=== PATIENT | female | born 1965 | race Caucasian/White ===

== ENCOUNTER 2018-04-27 14:45 | Emergency (ER) | payer OTHER ==
[2018-04-27] MEDS ORDERED: Methocarbamol TAB* 500 MG PO ONE (15:30)
[2018-04-27] MEDS ORDERED: Ketorolac INJ* 30 MG/ML 1 ML VIAL IM ONE (15:30)
--- NOTE | 2018-04-27 15:47 | ED ---
Back Pain - HPI Summary HPI Summary: 52-year-old female presents with back pain for the past 2 months. She denies any injury. States pain radiated down left leg. No weakness. Able to ambulate is normal. Has left side pain that increased last night. She did drive 4 hours today. States has had tried chiropractor and heat without relief. Also takes Tylenol ibuprofen. No saddle anesthesia or loss of bowel or bladder. No fevers. No urinary symptoms. No bowel pain. Did not have a previous history of back pain. Has not had any imaging of the back. - History of Current Complaint Chief Complaint: EDBackInjuryPain Stated Complaint: LT LEG/BACK PAIN Time Seen by Provider: 04/27/18 15:19 Pain Intensity: 10 - Allergies/Home Medications Allergies/Adverse Reactions: Allergies Allergy/AdvReac Type Severity Reaction Status Date / Time Sulfa (Sulfonamide Allergy Rash And Verified 04/27/18 15:04 Antibiotics) Itching PMH/Surg Hx/FS Hx/Imm Hx Endocrine/Hematology History: Denies: Hx Anticoagulant Therapy, Hx Diabetes Cardiovascular History: Denies: Hx Myocardial Infarction Infectious Disease History: No Infectious Disease History: Denies: Traveled Outside the [place] in Last 30 Days - Family History Known Family History: Positive: Diabetes - Social History Alcohol Use: Occasionally Substance Use Type: Reports: None Review of Systems Negative: Fever Negative: Chest Pain Negative: Shortness Of Breath Positive: Myalgia Positive: Paresthesia - left leg All Other Systems Reviewed And Are Negative: Yes Physical Exam Triage Information Reviewed: Yes Vital Signs On Initial Exam: Initial Vitals Temp Pulse Resp BP Pulse Ox 97.3 F 76 16 162/95 100 04/27/18 14:59 04/27/18 14:59 04/27/18 14:59 04/27/18 14:59 04/27/18 14:59 Vital Signs Reviewed: Yes Appearance: Positive: Well-Appearing Skin: Positive: Warm, Dry Head/Face: Positive: Normal Head/Face Inspection Eyes: Positive: Normal, Conjunctiva Clear ENT: Positive: Pharynx normal Respiratory/Lung Sounds: Positive: Clear to Auscultation, Breath Sounds Present Cardiovascular: Positive: Normal, RRR - n Abdomen Description: Positive: Nontender, Soft Bowel Sounds: Positive: Present Musculoskeletal: Positive: Strength/ROM Intact - back, Other - tenderness SI joint left, neg SLR, good pulses, good strength lower extermity. no midline tenderness back. senation grossly intact Neurological: Positive: Reflexes Intact - patella Psychiatric: Positive: Normal Diagnostics - Vital Signs Vital Signs Temp Pulse Resp BP Pulse Ox 04/27/18 14:59 97.3 F 76 16 162/95 100 - Laboratory Lab Statement: Any lab studies that have been ordered have been reviewed, and results considered in the medical decision making process. - Radiology lumbar Xray Interpretation: Positive (See Comments) - IMPRESSION: Grade 1 spondylolisthesis of L5 on S1. No fracture is noted. Radiology Interpretation Completed By: Radiologist Back Pain Course/Dx - Course Course Of Treatment: 52-year-old female presents with back pain for the past 2 months. She denies any injury. States pain radiated down left leg. No weakness. Able to ambulate is normal. Has left side pain that increased last night. She did drive 4 hours today. States has had tried chiropractor and heat without relief. Also takes Tylenol ibuprofen. No saddle anesthesia or loss of bowel or bladder. No fevers. No urinary symptoms. No bowel pain. Did not have a previous history of back pain. Has not had any imaging of the back. On exam tenderness left side of lower back. Tenderness SI joint. Negative straight leg raise. Neurovascularly intact. X-ray shows spondylithasis at L5. will treat with muscle relaxer. patient understand and agrees with plan. - Diagnoses Differential Diagnosis/HQI/PQRI: Positive: Herniated Disc, Strain, Sprain Provider Diagnoses: Back pain Discharge - Sign-Out/Discharge Documenting (check all that apply): Discharge/Admit/Transfer - Discharge Plan Condition: Good Disposition: HOME Prescriptions: Cyclobenzaprine TAB* [Flexeril 10 MG TAB*] 10 mg PO TID PRN #15 tab PRN Reason: Pain Patient Education Materials: Back Pain (ED) Referrals: Macho Fairbanks III [employer] [Primary Care Provider] - Additional Instructions: Take muscle relaxers three times a day, start with at night as can make drowsy Use ibuprofen or Tylenol for pain every 6 hours ice/heat area, move as much as possible Follow up with primary within 5 days Return to ED if develop any new or worsening symptoms - Billing Disposition and Condition Condition: GOOD Disposition: Home
--- NOTE | 2018-04-27 16:26 | RAD ---
Indication: Back pain. Left leg numbness. 5 views of lumbar spine demonstrates grade 1 spondylolisthesis of L5 on S1. Facet arthropathy is noted. Degenerative disc disease at L4-L5 and L5-S1. No fracture is noted. IMPRESSION: Grade 1 spondylolisthesis of L5 on S1. No fracture is noted.
[2018-04-27 17:02] VITALS: BP 151/102
== END 2018-04-27 17:01 | disposition home or self-care (01) ==
LOC: ED 14:45
DX: M54.9 Dorsalgia, unspecified (principal); M43.16 Spondylolisthesis, lumbar region
CPT/HCPCS: 72110; 96372; 99282; J1885

== ENCOUNTER 2018-05-01 12:41 | Observation (INO) | payer OTHER ==
[2018-05-01] MEDS ORDERED: LORazepam TAB(*) 1 MG PO ONE (13:14)
[2018-05-01] MEDS ORDERED: Ketorolac INJ* 60 MG/2 ML VIAL IM ONE (13:14)
[2018-05-01] MEDS ORDERED: predniSONE TAB* 20 MG PO ONE (13:14)
--- NOTE | 2018-05-01 13:21 | ED ---
Back Pain - HPI Summary HPI Summary: Patient is a 52-year-old female with worsening progression of low back pain over the past 2 months. She endorses pain to the left lower back radiating down into the leg. She was seen 2 days ago and x-ray was obtained, she was given muscle relaxers and states the back is progressively worsened since this time. She states she is unable to ambulate due to pain. She is tearful on arrival. She states she has been taking the muscle relaxer and ibuprofen without relief of symptoms. Endorses some numbness and tingling into the left lateral side of the leg without weakness. She had remained ambulatory until this afternoon. She states she has been continuing to work. Denies any previous back pain history. - History of Current Complaint Chief Complaint: EDBackInjuryPain Stated Complaint: SOB Time Seen by Provider: 05/01/18 12:59 Hx Obtained From: Patient Onset/Duration: Gradual Onset Onset/Duration: Started Hours Ago Timing: Constant Back Pain Location: Is Discrete @ - left lower back pain extending into the left leg Pain Intensity: 10 Pain Scale Used: 0-10 Numeric Character: Aching, Throbbing Aggravating Symptom(s): Movement, Lifting, Bending Alleviating Symptom(s): Rest, Position, Heat Associated Signs And Symptoms: Positive: Negative. Negative: Swelling, Redness , Bruising, Weakness, Numbness, Abdominal Pain, Bladder Incontinence, Bowel Incontinence, Weight Loss - Risk Factors AAA Risk Factors: Negative TAD Risk Factors: Negative Cauda Equina Risk Factors: Negative Epidural Abscess Risk Factors: Negative - Allergies/Home Medications Allergies/Adverse Reactions: Allergies Allergy/AdvReac Type Severity Reaction Status Date / Time Sulfa (Sulfonamide Allergy Rash And Verified 05/01/18 12:52 Antibiotics) Itching Home Medications: Home Medications Lisinopril 20 mg PO DAILY 05/01/18 [History Confirmed 05/01/18] Sertraline* [Zoloft*] 50 mg PO DAILY 05/01/18 [History Confirmed 05/01/18] Simvastatin (NF) [Zocor (NF)] 40 mg PO BEDTIME 05/01/18 [History Confirmed 05/01] PMH/Surg Hx/FS Hx/Imm Hx Previously Healthy: Yes Endocrine/Hematology History: Denies: Hx Anticoagulant Therapy, Hx Diabetes Cardiovascular History: Denies: Hx Myocardial Infarction - Immunization History Hx Pertussis Vaccination: No Immunizations Up to Date: Yes Infectious Disease History: No Infectious Disease History: Denies: Traveled Outside the [place] in Last 30 Days - Family History Known Family History: Positive: Diabetes - Social History Occupation: Employed Full-time Lives: With Family Alcohol Use: Occasionally Hx Substance Use: No Substance Use Type: Reports: None Hx Tobacco Use: Yes Smoking Status (MU): Heavy Every Day Tobacco Smoker Review of Systems Constitutional: Negative Negative: Fever, Chills, Fatigue Negative: Palpitations, Chest Pain Negative: Shortness Of Breath, Cough Negative: Abdominal Pain, Vomiting, Diarrhea, Nausea Genitourinary: Negative Positive: no symptoms reported, see HPI Positive: Arthralgia - left sided low back pain radiating to the left lower leg Skin: Negative Neurological: Negative All Other Systems Reviewed And Are Negative: Yes Physical Exam Triage Information Reviewed: Yes Vital Signs On Initial Exam: Initial Vitals Temp Pulse Resp BP Pulse Ox 98.6 F 78 20 179/112 100 05/01/18 12:48 05/01/18 12:48 05/01/18 12:48 05/01/18 12:48 05/01/18 12:48 Vital Signs Reviewed: Yes Appearance: Positive: Well-Appearing, Well-Nourished Skin: Positive: Warm, Skin Color Reflects Adequate Perfusion Neck: Positive: Supple, No Lymphadenopathy Respiratory/Lung Sounds: Positive: Clear to Auscultation, Breath Sounds Present Cardiovascular: Positive: RRR, Pulses are Symmetrical in both Upper and Lower Extremities Musculoskeletal: Positive: Pain @ - left lower leg radiated from left lower back , Other - flip test positive, raised leg test+. Negative: Jassi Sign Left, Jassi Sign Right Neurological: Positive: Sensory/Motor Intact, Alert, Oriented to Person Place, Time, Speech Normal Psychiatric: Positive: Normal, Affect/Mood Appropriate Diagnostics - Vital Signs Vital Signs Temp Pulse Resp BP Pulse Ox 05/01/18 12:48 98.6 F 78 20 179/112 100 - Laboratory Lab Statement: Any lab studies that have been ordered have been reviewed, and results considered in the medical decision making process. Back Pain Course/Dx - Course Course Of Treatment: During the course of treatment, the patient is evaluated for acute on chronic left-sided low back pain exacerbated with ambulation, alleviated only somewhat with lying flat. Pain is 10/10. Denies any weakness in the leg. Denies any bladder or bowel dysfunction. X-ray was obtained 2 days ago and negative, however she states the pain is worse compared to [address] lumbar spine obtained which shows broad based protrusion asymmetric towards the left and may impinge upon the left exiting nerve root. She is given 2 hydrocodone's, Ativan, Toradol, 60mg prednisone without relief. We have attempted to ambulate the patient twice and she continues to be unable to ambulate and still denotes 10/10 pain. I have offered admission as she remains unable to ambulate and has no care at home. She accepts admission. Discussed case with Dr. Luis at 5:10pm who agrees to admit patient. - Diagnoses Differential Diagnosis/HQI/PQRI: Positive: Herniated Disc, Strain, Sprain Provider Diagnoses: Lumbar nerve root impingement Discharge - Sign-Out/Discharge Documenting (check all that apply): Discharge/Admit/Transfer Signing out patient TO: Apollo Luis - admit to hospital - Discharge Plan Condition: Stable Disposition: ADMITTED TO [facility] Referrals: Macho Fairbanks III [employer] [Primary Care Provider] - - Billing Disposition and Condition Condition: STABLE Disposition: Admitted to [facility]
--- NOTE | 2018-05-01 14:25 | RAD ---
Indication: Low back pain. CT of the lumbar spine was obtained in the axial plane. Sagittal and coronal reconstructed images were obtained. The vertebral bodies appear normal in height. There is grade 1 spondylolisthesis of L5 on S1. There is broad-based protrusion with moderate degree of facet hypertrophy. There may be a moderate degree of spinal stenosis at this level. At L4-L5 broad-based protrusion flattens the thecal sac. There is a left posterior lateral component of disc protrusion which likely impinges upon the left exiting nerve root. Right foramen is grossly unremarkable. At L3-L4 broad-based protrusion flattens the thecal sac. No central foraminal stenosis is noted. At L2-L3 broad-based protrusion flattens the thecal sac. No central or foraminal stenosis is noted. At L1-L2 broad-based protrusion is noted. No focal protrusion is identified. IMPRESSION: Grade 1 spondylolisthesis of L5 on S1 with broad-based protrusion and moderate degree of spinal stenosis. At L4-L5 broad-based protrusion asymmetric towards the left and may impinge upon the left exiting nerve root.
[2018-05-01] MEDS ORDERED: HYDROcodone/ACETAMIN 5-325 MG* 1 TAB PO ONE (14:42)
[2018-05-01] MEDS ORDERED: Ondansetron INJ* 2 MG/ML VIAL IV PRN (17:41)
[2018-05-01] MEDS ORDERED: traMADol TAB* 50 MG PO PRN (17:44)
[2018-05-01] MEDS ORDERED: Cyclobenzaprine TAB* 10 MG PO PRN (17:46)
[2018-05-01 18:22] LABS: EGFR Non-African American 87.9 (>60)
[2018-05-01 18:29] LABS: ABS Basophils 0.1 10^3/ul (0-0.2); ABS Eosinophils 0 10^3/ul (0-0.6); ABS Lymphocytes 0.5 10^3/ul (1.0-4.8); ABS Monocytes 0.1 10^3/ul (0-0.8); ABS Neutrophils 5.6 10^3/ul (1.5-7.7); ABS Nucleated RBC 0 10^3/ul; Eosinophil % 0.1 % (0-6); Hematocrit 43 % (35-47); Hemoglobin 14.6 g/dl (12.0-16.0); Lymphocyte % 8.2 % (25-47); Mean Corpuscular HGB Conc 34 g/dl (31-36); Mean Corpuscular Hemoglobin 31 pg (27-31); Mean Corpuscular Volume 91 fL (80-97); Mean Platelet Volume 8.5 um3 (7.4-10.4); Nucleated Red Blood Cells % 0.1; Platelet Count 273 10^3/ul (150-450); Red Blood Count 4.68 10^6/ul (4.00-5.40); Red Cell Distribution Width 13 % (10.5-15); White Blood Count 6.3 10^3/ul (3.5-10.8)
[2018-05-01] MEDS: Atorvastatin* 20 MG TAB PO SCH ×2 (19:24→19:38)
[2018-05-01] MEDS: oxyCODONE/Acetamin 5/325 MG* TAB PO PRN (19:24)
--- NOTE | 2018-05-01 20:09 | HP ---
CC: Macho Fairbanks NP * HOSPITAL MEDICINE HISTORY AND PHYSICAL: DATE OF ADMISSION: 05/01/18 PRIMARY CARE PHYSICIAN: Macho Fairbanks NP ATTENDING PHYSICIAN: Ricky Luis MD * (dictation provided by Riya Campoverde NP) CHIEF COMPLAINT: Low back pain radiating to the left leg. HISTORY OF PRESENT ILLNESS: Ms. Alamo is a 52-year-old female with a past medical history of hypertension and hyperlipidemia who presents today to the hospital with severe pain in her low back radiating into her left leg. Ms. Alamo states that she began developing discomfort that radiated into her left leg in January. She denies any awareness of an inciting injury. Initially, she had numbness and tingling, but then progressed to pain over the next few weeks. She also began having pain in her low back. She went to see her primary care provider, CORINE Gutierrez, and, per her report, she was recommended to use heating pads and flexeril. She went on to see a chiropractor for several adjustments, but she stated this did not help her pain and in fact she continued to have worsening of her pain. Today she woke up about 9:30, she attempted to get out of bed, but she had severe pain in her left leg and was unable to stand. She also was unable to sit. The patient states this was new for her. She lay in the bed for a while and was able ultimately to make it down the stairs after stopping several times and then into the kitchen. She continued to have severe intermittent pain and ultimately drove herself to the emergency room at about 12:30. In the emergency room, Ms. Alamo had a CT of the lumbar spine, which showed grade 1 spondylolisthesis of L5-S1 with broad based protrusion and moderate degree of spinal stenosis at L4-L5, broad based protrusion asymmetric towards the left and may impinge upon the left exiting nerve root. The patient was given multiple doses of pain medication but despite this, she continued to have severe pain and inability to ambulate and therefore, Hospital Medicine was called regarding admission. PAST MEDICAL HISTORY: 1. Hypertension. 2. Hyperlipidemia. 3. Depression. MEDICATIONS: 1. Flexeril 10 mg p.o. t.i.d. p.r.n. 2. Lisinopril 20 mg p.o. daily. 3. Sertraline 50 mg p.o. daily. 4. Simvastatin 40 mg p.o. at bedtime. ALLERGIES: To SULFA. FAMILY HISTORY: The patient states her mother is alive and well. Her dad related to bladder cancer. SOCIAL HISTORY: The patient smokes a pack a day and has done so for some years. She reports only occasional alcohol use. She denies drug use. She works at [employer]. She states her mom would be her healthcare proxy. REVIEW OF SYSTEMS: A 14-point review of systems was completed with Ms. Alamo and all those not mentioned above were negative. PHYSICAL EXAMINATION GENERAL: Ms. Alamo is lying on her side in the bed. She is in no acute distress. VITAL SIGNS: Temperature 98.6, pulse rate 82, respiratory rate 20, O2 saturation 97% on room air, blood pressure 154/96. LUNGS: Clear to auscultation bilaterally with no accessory muscle use and good aeration. HEART: S1, S2. No murmur, rub, or gallop and regular. ABDOMEN: Soft, nontender with bowel sounds positive x4. BACK: The patient has no pain with palpation along the paraspinal muscles. She has a positive straight leg raise test with pain on the left. She has good sensation throughout. EXTREMITIES: No cyanosis. No edema. NEURO: She is alert. She is oriented x3. She moves all extremities equally. There is no facial asymmetry or focal weakness. Extraocular movements are intact. SKIN: Intact. LABORATORY DATA: Labs are pending. IMAGING: CT of back is as per above. ASSESSMENT AND PLAN: Ms. Alamo is a 52-year-old female with a past medical history of hypertension and hyperlipidemia who recently developed some numbness and tingling in her left leg as of January with a worsening and increasing pain, now in her low back and left leg with inability to ambulate despite pain medication in the ED. Our plans are for observation in the hospital for the followin. Low back pain with radiation to the left leg: The patient's CT shows no acute nerve impingement that is emergent in quality. She has no worrisome signs on physical examination. Our plans will be for pain medication overnight. She will go on for MRI tomorrow and if there are any significant findings there, we will consult with Neurosurgery. 2. Hypertension. Continue lisinopril. 3. Hyperlipidemia. Continue simvastatin. 4. Code status is full code. 5. Disposition to medical floor. TIME SPENT: Approximately 60 minutes were spent on the admission of this patient, more than half time spent with her at the bedside reviewing the events leading up to this hospitalization, performing the physical examination, and reviewing the plan of care. RIYA CAMPOVERDE NP [id number]/CPS #: [id number] SALIMA
[2018-05-01] MEDS: Heparin VIAL(*) 5000 UNITS/ML VIAL (FIVE THOUSAND) SUBCUT SCH (20:30)
[2018-05-02] MEDS: oxyCODONE/Acetamin 5/325 MG* TAB PO PRN ×6 (00:02→20:56)
[2018-05-02] MEDS: Heparin VIAL(*) 5000 UNITS/ML VIAL (FIVE THOUSAND) SUBCUT SCH ×3 (06:22→20:50)
[2018-05-02] MEDS: Sertraline* 50 MG TAB PO SCH (07:55)
[2018-05-02] MEDS: Atorvastatin* 20 MG TAB PO SCH (07:55)
[2018-05-02] MEDS: Lisinopril TAB* 10 MG PO SCH (07:55)
[2018-05-02] MEDS: HYDROmorphone INJ* 0.5 MG/0.5 ML SYRINGE IV SLOW PU PRN ×3 (08:04→20:57)
--- NOTE | 2018-05-02 08:26 | PN ---
Subjective Date of Service: 05/02/18 Interval History: Ms. Alamo is feeling somewhat better this morning. She has no pain at rest but had significant pain in her left leg when standing. She reports numbness and tingling in the left leg. She denies other complaint including chest pain, SOB , nausea, or abdominal pain. Objective Active Medications: Atorvastatin Calcium (Lipitor*) 20 mg PO BEDTIME TATIANNA Cyclobenzaprine HCl (Flexeril Tab*) 10 mg PO TID PRN Heparin Sodium (Porcine) (Heparin Vial(*)) 5,000 units SUBCUT Q8HR TATIANNA Hydromorphone HCl (Dilaudid Inj*) 0.5 mg IV SLOW PU Q4H PRN Lisinopril (Prinivil Tab*) 20 mg PO DAILY TATIANNA Ondansetron HCl (Zofran Inj*) 4 mg IV Q4H PRN Oxycodone/Acetaminophen (Percocet 5/325 Tab*) 2 tab PO Q4H PRN Sertraline HCl (Zoloft*) 50 mg PO DAILY TATIANNA Tramadol HCl (Ultram*) 100 mg PO Q6H PRN Vital Signs: Temp Pulse Resp BP Pulse Ox 98.4 F 74 20 137/83 99 05/02/18 07:32 05/02/18 07:32 05/02/18 08:04 05/02/18 07:32 05/02/18 07:32 Oxygen Devices in Use Now: None Appearance: Female lying in bed in NAD Eyes: No Scleral Icterus Ears/Nose/Mouth/Throat: Mucous Membranes Moist Neck: Trachea Midline Respiratory: Symmetrical Chest Expansion and Respiratory Effort, Clear to Auscultation Cardiovascular: NL Sounds; No Murmurs; No JVD, No Edema Abdominal: NL Sounds; No Tenderness; No Distention Lymphatic: No Cervical Adenopathy Extremities: No Edema Skin: No Rash or Ulcers Neurological: Alert and Oriented x 3, NL Muscle Strength and Tone, - - Brisk reflexes bilateral LEs. Lumbar pain with straight leg raise test on the left. Sensation intact. Nutrition: Taking PO's Result Diagrams: 05/01/18 18:00 05/01/18 18:00 Assess/Plan/Problems-Billing Assessment: Ms. Alamo is a 52 yo F with a PMH of HTN and HLD who was admitted on 05/01/18 with low back pain radiating to the left lower extremity. - Patient Problems (1) Back pain Comment: - MRI lumbar spine with left sided disc protrusion at L4-L5 with a small left sided disc protrusion at L3-L4 and a right sided disc protrusion at L2-L3. - Consult neurosurg pending. - Continue pain meds prn. (2) Hypertension Comment: - Continue lisinopril. (3) Hyperlipidemia Comment: - Continue atorvastatin. (4) DVT prophylaxis Comment: - Heparin SQ. (5) Full code status Comment: Status and Disposition: OBV. Anticipate discharge to home when medically stable.
--- NOTE | 2018-05-02 08:57 | RAD ---
HISTORY: Low back pain, radiating to left lower leg COMPARISONS: CT dated May 01, 2018 TECHNIQUE: The following sequences were obtained of the lumbar spine: Sagittal and axial T1- and T2-weighted images, coronal T2-weighted images, and sagittal STIR images. FINDINGS: SPINAL CORD, CONUS, AND CAUDA EQUINA: The visualized spinal cord, conus, and cauda equina are normal in caliber, position, and signal intensity. ALIGNMENT: There is grade 1 anterolisthesis of L5 on S1. VERTEBRAL BODIES: There is multilevel anterolateral marginal osteophyte formation. There are Modic type I reactive end the changes at L4-L5 with Modic type III changes at L2-L3, L3-L4, L4-L5, and L5-S1. JOINTS: There is diffuse facet osteoarthritis most pronounced along the lower lumbar spine. MUSCULATURE: There is mild fatty infiltration. INTERVERTEBRAL DISCS: There is diffuse loss of intervertebral disc height and T2 signal throughout the spine. AXIAL IMAGES: L2-L3: There is a right lateral recess disc protrusion measuring 0.3 cm in depth. There is bilateral facet hypertrophy. There is mild bilateral neuroforaminal narrowing. There is no significant central canal stenosis. L3-L4: There is a broad-based disc bulge. There is a small left lateral recess disc protrusion measuring 0.3 cm in depth impinging upon the descending nerve root. There is bilateral facet hypertrophy. There is severe left and moderate right neuroforaminal narrowing. There is no significant central canal stenosis. L4-L5: There is a broad-based disc bulge with a superimposed left paracentral disc protrusion measuring 0.5 cm in depth. This abuts the descending nerve roots bilaterally with displacement of the left L5 nerve root. There is bilateral facet hypertrophy. There is severe left and moderate right neuroforaminal narrowing. There is mild narrowing of the central canal. L5-S1: There is a broad-based disc bulge/rolled disc. There is bilateral facet hypertrophy. There is moderate bilateral neural foraminal narrowing. There is no significant central canal stenosis. SOFT TISSUES: The visualized soft tissues of the abdomen are unremarkable. OTHER: None. IMPRESSION: 1. DEGENERATIVE DISC DISEASE AND OSTEOARTHRITIS. 2. SPONDYLOLISTHESIS AT L5-S1. 3. THERE IS MILD NARROWING OF CENTRAL CANAL AT L4-L5. 4. THERE IS MULTILEVEL NEURAL FORAMINAL NARROWING DESCRIBED ABOVE. 5. THERE IS A LEFT-SIDED DISC PROTRUSION AT L4-L5 WITH A SMALL LEFT-SIDED DISC PROTRUSION AT L3-L4 AND A RIGHT-SIDED DISC PROTRUSION AT L2-L3.
[2018-05-03] MEDS: HYDROmorphone INJ* 0.5 MG/0.5 ML SYRINGE IV SLOW PU PRN ×3 (00:24→09:07)
[2018-05-03] MEDS: oxyCODONE/Acetamin 5/325 MG* TAB PO PRN ×4 (00:24→13:10)
[2018-05-03] MEDS: Heparin VIAL(*) 5000 UNITS/ML VIAL (FIVE THOUSAND) SUBCUT SCH ×2 (05:05→13:15)
[2018-05-03] MEDS: Sertraline* 50 MG TAB PO SCH (08:19)
[2018-05-03] MEDS: Lisinopril TAB* 10 MG PO SCH (08:19)
--- NOTE | 2018-05-03 10:10 | PN ---
Subjective Date of Service: 05/03/18 Interval History: Ms. Alamo continues to have pain which is limiting her ability to ambulate stairs. She does have a flight of stairs to get into her 2nd floor apartment. She denies other complaint including chest pain, SOB, nausea, or abdominal pain. Objective Active Medications: Atorvastatin Calcium (Lipitor*) 20 mg PO BEDTIME TATIANNA Cyclobenzaprine HCl (Flexeril Tab*) 10 mg PO TID PRN Heparin Sodium (Porcine) (Heparin Vial(*)) 5,000 units SUBCUT Q8HR TATIANNA Lisinopril (Prinivil Tab*) 20 mg PO DAILY TATIANNA Ondansetron HCl (Zofran Inj*) 4 mg IV Q4H PRN Oxycodone/Acetaminophen (Percocet 5/325 Tab*) 2 tab PO Q4H PRN Sertraline HCl (Zoloft*) 50 mg PO DAILY TATIANNA Tramadol HCl (Ultram*) 100 mg PO Q6H PRN Vital Signs: Temp Pulse Resp BP Pulse Ox 98.1 F 77 14 140/85 98 05/03/18 08:19 05/03/18 08:19 05/03/18 09:07 05/03/18 08:19 05/03/18 08:19 Oxygen Devices in Use Now: None Appearance: Female lying in bed in NAD Eyes: No Scleral Icterus Ears/Nose/Mouth/Throat: Mucous Membranes Moist Neck: Trachea Midline Respiratory: Symmetrical Chest Expansion and Respiratory Effort, Clear to Auscultation Cardiovascular: NL Sounds; No Murmurs; No JVD, No Edema Abdominal: NL Sounds; No Tenderness; No Distention Lymphatic: No Cervical Adenopathy Extremities: No Edema Skin: No Rash or Ulcers Neurological: Alert and Oriented x 3, NL Muscle Strength and Tone, - - Pain in left lower extremity with mobility Nutrition: Taking PO's Result Diagrams: 05/01/18 18:00 05/01/18 18:00 Assess/Plan/Problems-Billing Assessment: Ms. Alamo is a 52 yo F with a PMH of HTN and HLD who was admitted on 05/01/18 with low back pain radiating to the left lower extremity. - Patient Problems (1) Back pain Comment: - MRI lumbar spine with left sided disc protrusion at L4-L5 with a small left sided disc protrusion at L3-L4 and a right sided disc protrusion at L2-L3. - Appreciate neurosurg consultation, no indication for emergent surgery. Recommended decadron, physical therapy, and follow up with them in 2 weeks. - Continue pain meds prn. (2) Hypertension Comment: - Continue lisinopril. (3) Hyperlipidemia Comment: - Continue atorvastatin. (4) DVT prophylaxis Comment: - Heparin SQ. (5) Full code status Comment: Status and Disposition: OBV. Discharge to home.
--- NOTE | 2018-05-03 13:19 | CONSULT ---
Consult Consult: Neurosurgery Consult Date of Admission: 05/01/18 Date of Consult: 05/03/18 Reason for Consult: Left lumbar radiculopathy Referring Provider: Riya Campoverde NP HPI: This is a 52 year old female with past medical history significant for HTN , HLD and depression who presented to [facility] ED on 04/27/18 with complaint of low back pain and again on 05/01/18 with complaint of low back and left lower extremity pain. She states that symptoms began in January with a numbness/ tingling sensation in the LLE. She presented to her PCP who recommended heat application. She was also treated with animal care assistant. After a week or so, low back pain with radiation to the LLE began and has worsened since onset. On , she woke up with severe pain and was unable to get up out of bed. The LLE pain was so severe that she was having difficulty ambulating. She presented to [facility] ED where CT of the lumbar spine was obtained showing DDD and spondylolisthesis L5-S1. She was treated with pain medications and one dose of prednisone. She was admitted for MRI of the lumbar spine on 05/02/18 and management of low back pain. Currently, she complains of LLE pain worse with getting up and standing. She describes pain beginning in the low back, down to the left buttock, anteriolateral thigh and anterolateral lower leg to the foot. She reports numbness/tingling in the same distribution. Denies specific weakness of the lower extremities. She is unable to stand or walk without recurrence of pain. While sitting or recumbent in bed, she is quite comfortable. She participated in physical therapy today and states that she was unable to ascend stairs secondary to the pain. She is able to move herself around in bed without difficulty or pain. She denies history of chronic low back pain or episodes of back pain. She has never experienced anything similar to this in the past. Denies bowel or bladder incontinence. Past Medical History: 1. Hypertension 2. Hyperlipidemia 3. Depression Home Medications: 1. Cyclobenzaprine TAB* [Flexeril 10 MG TAB*] 10 mg PO TID PRN #15 tab 04/27/18 [Rx Confirmed 05/01/18] 2. Lisinopril 20 mg PO DAILY 05/01/18 [History Confirmed 05/01/18] 3. Sertraline* [Zoloft*] 50 mg PO DAILY 05/01/18 [History Confirmed 05/01/18] 4. Simvastatin (NF) [Zocor (NF)] 40 mg PO BEDTIME 05/01/18 [History Confirmed ] Allergies: 1. Sulfonamide antibiotics Social History: This patient smokes 1ppd cigarettes for years, occasionally consumes alcohol. She works in the [employer] department at [employer]. ROS: Full ROS completed. Pertinent findings stated in HPI and all others negative. Physical Exam: Vital Signs: Temp Pulse Resp BP Pulse Ox 98.1 F 77 16 140/85 98 05/03/18 08:19 05/03/18 08:19 05/03/18 13:13 05/03/18 08:19 05/03/18 08:19 General: Alert and oriented, resting comfortably recumbent in bed. HEENT: Head is normocephalic and atraumatic. PERRL, EOMI. Gross hearing intact. Moist mucus membranes. Neck: No obvious deformity. Neck is supple and symmetric. CV: Radial pulses 2+ and equal, pedal pulses 2+ and equal. Lungs: Breathing is nonlabored. Lungs are clear. Abdomen: The abdomen is mildly rounded. Nondistended, nontender. Normoactive bowel sounds. Neuro: Speech is clear. Answers questions appropriately. CN II-XII intact. Upper extremity motor normal. Lower extremity strength 5/5 bilaterally in plantarflexion, EHL, quadriceps, hip flexors. Patient experienced severe pain with LLE strength testing, dorsiflexion 4+/5 left, 5/5 right. Sensation intact throughout. SLR positive 60 degrees on the left, negative on the right. Hips: No pain with hip rotation and palpation. Imagin. Xrays of the lumbar spine on 04/27/18 show spondylolisthesis L5-S1 and degenerative disc disease. 2. CT of the lumbar spine on 05/01/18 shows spondylolisthesis L5-S1 and degenerative disc disease. 3. MRI lumbar spine on 05/02/18 shows multilevel degenerative disc disease, L4-5 central and to the left disc bulge, and spondylolisthesis L5-S1. Assessment and Plan: This is a 52 year old female with past medical history significant for HTN and depression who presented to [facility] ED with severe low back pain with radiation to the LLE. MRI was obtained. Results were discussed with the patient today showing degenerative disc disease, L4-5 disc bulge and spondylolisthesis L5-S1. Since admission, she has been treated with flexeril, oxycodone and dilaudid which have improved but not resolved symptoms. While in the emergency department, she received pain medications and one dose of prednisone. She continues to have difficulty getting up, ambulating and ascending stairs independently. Treatment options including a course of steroids , physical therapy and pain management were discussed with the patient. I recommend a dose of Decadron 10mg PO, can repeat Q6H. She is agreeable to this treatment. Also, she will possibly benefit from a medrol dosepack 4mg upon discharge home if today or tomorrow. Follow up in office with Dr. Mistry in 2 weeks. This case was discussed with Dr. Mistry who also reviewed the lumbar MRI and Riya Campoverde NP.
[2018-05-03] MEDS ORDERED: Dexamethasone TAB* 4 MG PO ONE (13:22)
[2018-05-03 16:46] VITALS: BP 107/65
--- NOTE | 2018-05-03 21:35 | DS ---
CC: Macho Fairbanks NP* [facility] DISCHARGE SUMMARY: DATE OF ADMISSION: 05/01/18 DATE OF DISCHARGE: 05/03/18 PRIMARY CARE PROVIDER: Macho Fairbanks NP ATTENDING PHYSICIAN: Dr. Vannessa Krueger* (dictation provided by Riya Campoverde NP) . PRIMARY DIAGNOSIS: Lumbar pain with degenerative disk disease, L4-L5 disk bulge , and spondylolisthesis at L5-S1. SECONDARY DIAGNOSES: 1. Hypertension. 2. Hyperlipidemia. 3. Depression. MEDICATIONS AT THE TIME OF DISCHARGE: 1. Solu-Medrol Dosepak for next 5 days. 2. Cyclobenzaprine 10 mg p.o. t.i.d. p.r.n. 3. Simvastatin 40 mg p.o. at bedtime. 4. Sertraline 50 mg p.o. daily. 5. Lisinopril 20 mg p.o. daily. 6. Oxycodone/acetaminophen 5/325 two tabs p.o. q.4 hours p.r.n. HOSPITAL COURSE: Ms. Alamo is a 52-year-old female, who presented to the emergency room on 05/01/18 with a report of sudden worsening of her low back pain, which has been going on since January. Please see the dictated H and P from myself for complete details. In brief, the patient reported low back pain radiating into the left extremity. In the emergency room, she had a lumbar spine CT, which showed the following, "Grade 1 spondylolisthesis at L5-S1 with broad-based protrusion and moderate degree of spinal stenosis at L4-L5, broad- based protrusion symmetric towards the left and may impinge upon the left exiting nerve root." The patient was given multiple doses of pain medication in the emergency room. Despite that, she was still in severe pain and unable to ambulate and therefore she was placed on observation in the hospital. Ms. Alamo went on to have a lumbar spine MRI on 05/02/18, which showed the following, "Degenerative disk disease and osteoarthritis, spondylolisthesis at L5- S1. There is mild narrowing of central canal at L4-L5. There is multilevel neuroforaminal narrowing as described above. There is left-sided disk protrusion at L4-L5 with small left-sided disk protrusion at L3-L4 and a right-sided disk protrusion at L2-L3." The patient received physical therapy and was having difficulty with ambulating stairs. She was seen in consultation by Dr. Mistry's team from Neurosurgery. They recommended that the [facility] and that she continue physical therapy outpatient and follow up with them in 2 weeks. Ms. Alamo is able to ambulate independently in the room. She is still having some difficulty with stairs, but believes she will be able to navigate them as need be. She is being discharged to home in a wheelchair van as she has driven herself to the hospital originally and will need to come pick her car later. DISPOSITION: To home. DIET: Low-fat, low-salt. ACTIVITY: As tolerated with physical therapy. FOLLOWUP PLANS: 1. Please follow up with Macho Fairbanks NP in the next week regarding acute episode of back pain. 2. Please consider following up with Dr. Mistry's team within the next 2 weeks. TIME SPENT: Approximately 60 minutes were spent on the discharge of this patient, more than half time spent with the patient at the bedside reviewing the events leading up to this hospitalization and during this hospitalization, performing the physical examination, and reviewing my plan of care. RIYA CAMPOVERDE NP [id number]/[facility] #: [id number] SALIMA
== END 2018-05-03 20:16 | disposition home or self-care (01) ==
LOC: ED 12:41 → MED 17:55
PROVIDERS: ADMIT Internal Medicine; ATTEND Internal Medicine
DX: M51.16 Intervertebral disc disorders with radiculopathy, lumbar region (principal); M43.17 Spondylolisthesis, lumbosacral region; I10 Essential (primary) hypertension; E78.5 Hyperlipidemia, unspecified; F32.9 Major depressive disorder, single episode, unspecified; Z79.899 Other long term (current) drug therapy; Z88.2 Allergy status to sulfonamides; F17.210 Nicotine dependence, cigarettes, uncomplicated
CPT/HCPCS: 36415; 72131; 72148; 80048; 85025; 96372; 96374; 96376; 99283; A9270-GY; G0378; J1170; J1885; J7512; J8540

== ENCOUNTER 2018-05-31 15:12 | Observation (INO) | payer OTHER ==
[2018-05-31] MEDS ORDERED: Bupivacaine 0.5%* 50 ML VIAL INJ ONE (15:38)
[2018-05-31] MEDS ORDERED: LORazepam INJ* 2 MG/ML 1 ML VIAL IV PUSH ONE (15:38)
[2018-05-31] MEDS ORDERED: Ketorolac INJ* 30 MG/ML 1 ML VIAL IV PUSH ONE (15:38)
--- NOTE | 2018-05-31 15:46 | ED ---
Back Pain - HPI Summary HPI Summary: Pt is a 52 y/o female BIBA to the [facility] c/o of acute on chronic lower back pain onset today after shopping. The pain is described as tight/ spasmic and rated 10/10 as per nurses records. She has been seeing a chiropractor and was on an inversion table today. She notes bilateral LE pain, worse in the LLE and bilateral UE numbness. She has a Hx of 3 slipped discs and pinched nerve for which she was hospitalized and treated with muscle relaxer, steroid, and oxycodone. She has an appointment with Dr. Mistry (Neurosurgeon) tomorrow. Pt. received Zofran and 200 fentanyl from EMS. She smokes daily but denies any substance and ETOh use. PMHx of HTN and HLD This is frediibe Desire Hua documenting for attending Dr. Kartik Etienne MD. - History of Current Complaint Stated Complaint: BACK PAIN Time Seen by Provider: 05/31/18 15:27 Hx Obtained From: Patient, EMS Onset/Duration: Still Present, Worse Since - Today Onset/Duration: Still Present - Acute on chronic Severity Initially: Severe Severity Currently: Severe Pain Intensity: 10 Pain Scale Used: 0-10 Numeric Character: Spasmodic Aggravating Symptom(s): Other - ADL Associated Signs And Symptoms: Positive: Numbness - Bilateral upper extremity, Other - Positive: Bilateral LE, worse in the LLE - Allergies/Home Medications Allergies/Adverse Reactions: Allergies Allergy/AdvReac Type Severity Reaction Status Date / Time Sulfa (Sulfonamide Allergy Rash And Verified 05/31/18 15:44 Antibiotics) Itching Home Medications: Home Medications Lisinopril TAB* [Prinivil TAB*] 20 mg PO DAILY 05/31/18 [History Confirmed 05/31] PMH/Surg Hx/FS Hx/Imm Hx Previously Healthy: No Endocrine/Hematology History: Denies: Hx Anticoagulant Therapy, Hx Diabetes Cardiovascular History: Reports: Hx Hypercholesterolemia, Hx Hypertension Denies: Hx Myocardial Infarction, Hx Pacemaker/ICD Sensory History: Reports: Hx Contacts or Glasses Denies: Hx Hearing Aid Opthamlomology History: Reports: Hx Contacts or Glasses Psychiatric History: Denies: Hx Panic Disorder - Surgical History Surgery Procedure, Year, and Place: TONSILS,WISDOM TEETH - Family History Known Family History: Positive: Diabetes - Social History Occupation: Employed Full-time Lives: Alone Alcohol Use: Occasionally Hx Substance Use: No Substance Use Type: Reports: None Hx Tobacco Use: Yes Smoking Status (MU): Heavy Every Day Tobacco Smoker Type: Cigarettes Review of Systems Negative: Fever Positive: Other - Positive: Lower back pain and spasm, LEpain, worse in the LLE Positive: Numbness - Bilateral UE All Other Systems Reviewed And Are Negative: Yes Physical Exam - Summary Physical Exam Summary: Appearance: In distress due to pain Skin: warm, dry, reflects adequate perfusion Head/face: normal Eyes: EOMI, SOFIA ENT: normal Neck: supple, non-tender Respiratory: CTA, breath sounds present Cardiovascular: RRR, pulses symmetrical , Bilateral pedal pulses 2-3+ Abdomen: non-tender, soft Bowel Sounds: present Musculoskeletal: BIlateral leg raise w/ pain, pain with spasm to lower lumbar, Intact patella tendon reflexes Triage Information Reviewed: Yes Vital Signs Reviewed: Yes Procedures - Procedure Summary Procedure Summary: Trigger point injection: Reason: Left low back pain Description: The patient was consented and was placed prone. Her left para lumbar musculature was cleaned with alcohol. It was injected with a total of 10 cc of 0.5% bupivacaine diluted to 20 cc with saline and divided aliquots. The medication was massaged to the tissues. She tolerated this well. Her pain relief was modest. Diagnostics - Laboratory Result Diagrams: 06/01/18 05:46 05/31/18 18:01 Lab Statement: Any lab studies that have been ordered have been reviewed, and results considered in the medical decision making process. Back Pain Course/Dx - Course Course Of Treatment: Patient presents for second time in approximately 1 month with excruciating low back pain. She originally states it is not radiating into her legs or causing radicular symptoms. She underwent trigger point injections with modest reduction of discomfort. Following this she complained largely of severe pain now radiating into her thigh. We attempted to walk her and she was unable to do so. She is currently receiving outpatient resident care assistant, physical therapy and is due to see neurosurgery tomorrow. Unfortunately, following several rounds of medication the patient still was unable to be discharged. She did have an MRI 1 month ago indicating modest disc disease. He had an, her presenting complaint today was largely left low back and without radiation. - Diagnoses Differential Diagnosis/HQI/PQRI: Positive: Cauda Equina Syndrome, Epidural Abscess, Herniated Disc, Strain, Sprain Provider Diagnoses: Lumbar back pain with radiculopathy affecting left lower extremity - Provider Notifications Discussed Care Of Patient With: Yayo Bosch - Hospitalist Time Discussed With Above Provider: 18:40 Instructed by Provider To: Admit As Inpatient Discharge - Sign-Out/Discharge Documenting (check all that apply): Patient Departure - Admit - Discharge Plan Condition: Fair Disposition: ADMITTED TO [facility] - Billing Disposition and Condition Condition: FAIR Disposition: Admitted to [facility]
[2018-05-31] MEDS ORDERED: HYDROmorphone INJ* 2 MG/ML CARPUJECT SYRINGE IV SLOW PU ONE (17:33)
[2018-05-31] MEDS ORDERED: methylPREDNISolone 125 MG* 2 ML VIAL IV ONE (17:33)
[2018-05-31 18:10] LABS: ABS Basophils 0.1 10^3/ul (0-0.2); ABS Eosinophils 0.1 10^3/ul (0-0.6); ABS Lymphocytes 1.7 10^3/ul (1.0-4.8); ABS Monocytes 0.6 10^3/ul (0-0.8); ABS Neutrophils 6.9 10^3/ul (1.5-7.7); ABS Nucleated RBC 0 10^3/ul; Eosinophil % 0.7 % (0-6); Hematocrit 42 % (35-47); Lymphocyte % 18.3 % (25-47); Mean Corpuscular HGB Conc 34 g/dl (31-36); Mean Corpuscular Hemoglobin 31 pg (27-31); Mean Corpuscular Volume 91 fL (80-97); Mean Platelet Volume 8.2 um3 (7.4-10.4); Nucleated Red Blood Cells % 0; Platelet Count 252 10^3/ul (150-450); Red Blood Count 4.57 10^6/ul (4.00-5.40); Red Cell Distribution Width 13 % (10.5-15); White Blood Count 9.3 10^3/ul (3.5-10.8)
[2018-05-31 18:27] LABS: EGFR Non-African American 86.4 (>60)
[2018-05-31] MEDS ORDERED: Cyclobenzaprine TAB* 10 MG PO PRN ×2 (20:11→20:13)
[2018-05-31] MEDS ORDERED: Atorvastatin* 20 MG TAB PO SCH (21:00)
[2018-05-31] MEDS: HYDROmorphone INJ* 0.5 MG/0.5 ML SYRINGE IV SLOW PU PRN (21:10)
[2018-05-31] MEDS: Heparin VIAL(*) 5000 UNITS/ML VIAL (FIVE THOUSAND) SUBCUT SCH (21:15)
--- NOTE | 2018-06-01 01:44 | HP ---
HISTORY AND PHYSICAL: DATE OF ADMISSION: 05/31/18 PROVIDER: Henry Fraser NP ATTENDING PHYSICIAN: Dr. Salazar * (report dictated by Henry Fraser NP). PRIMARY CARE PROVIDER: Macho Fairbanks NP CHIEF COMPLAINT: Low back pain radiating down left leg. HISTORY OF PRESENT ILLNESS: Ms. Alamo is a 52-year-old female with recent hospitalization at [facility] for intractable back pain from to 05/03/18, in which she underwent an MRI and was found to have lumbar disk protrusion. She was treated with Decadron and sent home on Solu-Medrol pack and the patient reports after hospitalization, her back pain improved. She followed up with physical therapist as well as has been undergoing chiropractic adjustments. The patient reports, however, that approximately 10 days ago, she traveled to [facility] to see her mother and this appeared to aggravate her back during her week long visit in [facility]. The patient reports that she saw chiropractor and after that reports that her symptoms completely resolved. The patient then reports she traveled home and her back felt fine. She followed up with her physical therapist that she has not seen in a week-and-a- half. She reports the therapy session went well. This morning when she woke up , she had no pain. She reports that she did go to the grocery store and that is when she came back from the store after carrying heavy bags that she noted her low back was aching. She came home. She applied ice to her lower back, however, the pain worsened and she felt that she was having muscle spasms. Due to being in excruciating pain and spasm, she came to the emergency department for further evaluation. In the emergency department, Dr. Mir performed a lumbar injection with bupivacaine. On evaluation in the emergency department, the patient reports that she tried to get off the stretcher twice and was unable to ambulate. She reports low, more left- sided back, upper glute pain that travels down the back of her leg. She denies numbness or tingling. She is able to perform straight leg raises and has good strength; however, this did cause her to have a painful spasm. She denies any loss of bowel or bladder. No abdominal pain. PAST MEDICAL HISTORY: 1. Hypertension. 2. Hyperlipidemia. 3. Depression. MEDICATIONS: 1. Flexeril 10 mg p.o. t.i.d. p.r.n. 2. Lisinopril 10 mg p.o. daily. 3. Sertraline 50 mg p.o. daily. 4. Simvastatin 40 mg p.o. at bedtime. ALLERGIES: SULFA. FAMILY HISTORY: The patient's mother is alive and well. The patient's father secondary to bladder cancer. SOCIAL HISTORY: The patient smokes half-a-pack a day, reporting she has done this for many, many years. She reports occasional alcohol use. She currently works at [employer] in the [place] and states that she has to perform heavy lifting. 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 Her mother is her healthcare proxy. REVIEW OF SYSTEMS: A 14-point review of systems was completed. All the pertinent positives and negatives are mentioned in the history of present illness. Otherwise are negative. PHYSICAL EXAMINATION GENERAL APPEARANCE: A 52-year-old female, well-developed, lying on the emergency department stretcher, in no acute distress. VITAL SIGNS: Temperature 98.3, heart rate 74, respirations 16, O2 sat 99% on room air, blood pressure 154/63. HEENT: Head is normocephalic, atraumatic. Pupils are equal and reactive. Oropharynx is clear. Moist mucous membranes. LUNGS: Clear to auscultation bilaterally. Good aeration throughout. CARDIAC: S1, S2. Regular rate and rhythm. No murmurs, rubs, or gallops appreciated. ABDOMEN: Soft, nontender, nondistended. Normal bowel sounds throughout. EXTREMITIES: No clubbing, cyanosis, or edema. Upper extremities have full range of motion, but strength is 5/5 bilaterally. With lower extremity, she is guarded, however, she can perform a straight leg test in which during the exam she developed severe lower back muscle spasm. NEUROLOGIC: Cranial nerves II through XII grossly intact. LABORATORY DATA AND DIAGNOSTIC STUDIES: Sodium 137, potassium 4.2, chloride 104, carbon dioxide 25, anion gap 8, BUN 19, creatinine 0.71, glucose 102, calcium 9.5. WBC is 9.3, RBC 4.57, HGB, 14, HCT 42, MCV 91, MCH 31, MCHC 34, platelet count 252. Toxicology serum, alcohol less than 10. ASSESSMENT AND PLAN: Ms. Alamo is a 52-year-old female who was recently hospitalized in early May for 3 days, found to have left sided disc protrusion at L4-L5 with a small left sided disc protrusion at L3-L4 and a right sided disc protrusion at L2-L3 on MRI in which she was sent home on Solu-Medrol Dosepak, who presents today with acute onset of intractable back pain and spasms starting this morning. 1. Intractable back pain. The patient will be admitted to the medical unit for intractable back pain. She did receive an injection by the ER physician of bupivacaine as well as she received Toradol and Dilaudid, which improved her pain slightly, but she still continues to have significant back spasms, unable to ambulate. She has good range of motion and strength in the bed. She has no numbness or bladder or bowel weakness. She did receive Solu-Medrol 125 mg IV in the emergency department. Re-evaluate in the morning, possibly continue steroids depending on examination. I will ask Neurosurgery to see the patient tomorrow in consultation. She did have an outpatient appointment tomorrow with Dr. Mistry for followup. 2. Hypertension, controlled. Continue lisinopril. 3. Tobacco abuse. The patient refuses nicotine replacement at this time. 4. Hyperlipidemia. Continue simvastatin. 5. DVT prophylaxis, heparin subcu. 6. Code status, full code. 7. Healthcare proxy. The patient lists her mother as the healthcare proxy. 8. Hospital status. Observation. TIME SPENT: Approximately 60 minutes were spent on this admission. HENRY FRASER, CHRIS [id number]/[facility] #: [id number] SALIMA
[2018-06-01] MEDS: HYDROmorphone INJ* 0.5 MG/0.5 ML SYRINGE IV SLOW PU PRN ×2 (02:28→06:55)
[2018-06-01] MEDS: Heparin VIAL(*) 5000 UNITS/ML VIAL (FIVE THOUSAND) SUBCUT SCH (05:01)
[2018-06-01 06:53] LABS: ABS Basophils 0 10^3/ul (0-0.2); ABS Eosinophils 0 10^3/ul (0-0.6); ABS Lymphocytes 0.8 10^3/ul (1.0-4.8); ABS Monocytes 0.1 10^3/ul (0-0.8); ABS Neutrophils 5.8 10^3/ul (1.5-7.7); ABS Nucleated RBC 0 10^3/ul; Eosinophil % 0 % (0-6); Hematocrit 43 % (35-47); Hemoglobin 14.8 g/dl (12.0-16.0); Lymphocyte % 12.1 % (25-47); Mean Corpuscular HGB Conc 35 g/dl (31-36); Mean Corpuscular Hemoglobin 31 pg (27-31); Mean Corpuscular Volume 90 fL (80-97); Mean Platelet Volume 9.1 um3 (7.4-10.4); Nucleated Red Blood Cells % 0; Platelet Count 269 10^3/ul (150-450); Red Blood Count 4.75 10^6/ul (4.00-5.40); Red Cell Distribution Width 13 % (10.5-15); White Blood Count 6.7 10^3/ul (3.5-10.8)
[2018-06-01 07:27] VITALS: BP 125/77
--- NOTE | 2018-06-01 07:48 | PN ---
Subjective Date of Service: 06/01/18 Interval History: . Ms. crowe reports she is able to move much better today and ambulate to the bathroom. She feels discouraged that she has had this set back butagrees to discharge and will f/u with Dr. flanagan in the office this afternoon at her scheduled appointment. She denies any numbness, tingling. No difficulty with bowel movements or voiding Objective Active Medications: Atorvastatin Calcium (Lipitor*) 20 mg PO BEDTIME TATIANNA Last Admin: 05/31/18 21:13 Dose: 20 mg Cyclobenzaprine HCl (Flexeril Tab*) 10 mg PO Q8HR PRN PRN Reason: PAIN Last Admin: 05/31/18 21:13 Dose: 10 mg Heparin Sodium (Porcine) (Heparin Vial(*)) 5,000 units SUBCUT Q8HR [facility] Last Admin: 06/01/18 05:01 Dose: Not Given Hydromorphone HCl (Dilaudid Inj*) 0.5 mg IV SLOW PU Q4H PRN PRN Reason: PAIN Last Admin: 06/01/18 06:55 Dose: 0.5 mg Lisinopril (Prinivil Tab*) 20 mg PO DAILY [facility] Sertraline HCl (Zoloft*) 50 mg PO DAILY [facility] Vital Signs - 8 hr 06/01/18 06/01/18 06/01/18 02:28 03:28 03:56 Temperature 98.4 F Pulse Rate 62 Respiratory 17 16 16 Rate Blood Pressure 107/64 (mmHg) O2 Sat by Pulse 98 Oximetry 06/01/18 06/01/18 06:55 07:27 Temperature 98.2 F Pulse Rate 66 Respiratory 20 16 Rate Blood Pressure 125/77 (mmHg) O2 Sat by Pulse 98 Oximetry Oxygen Devices in Use Now: None Appearance: A+Ox3 in NAD, anxious Eyes: No Scleral Icterus, PERRLA Ears/Nose/Mouth/Throat: NL Teeth, Lips, Gums, Mucous Membranes Moist Respiratory: Symmetrical Chest Expansion and Respiratory Effort, Clear to Auscultation Cardiovascular: NL Sounds; No Murmurs; No JVD, RRR, No Edema Abdominal: NL Sounds; No Tenderness; No Distention Extremities: No Edema, No Clubbing, Cyanosis Skin: No Rash or Ulcers, No Nodules or Sclerosis Neurological: Alert and Oriented x 3, NL Sensation, NL Muscle Strength and Tone Lines/Tubes/Other Access: Clean, Dry and Intact Peripheral IV Nutrition: Taking PO's Result Diagrams: 06/01/18 05:46 06/01/18 05:46 Assess/Plan/Problems-Billing Assessment: Ms. Crowe is a 52 yo female with a PMH of recent hospitalization in early May for 3 days for intractable pain found to have left sided disc protrusion at L4-L5 with a small left sided disc protrusion at L3-L4 and a right sided disc protrusion at L2-L3. who had been doing well outpatient who reports starting on 05/31 developed worsening back pain and spasms who returned to the ER and was admitted for intractable back pain. - Patient Problems (1) Back pain Code(s): M54.9 - DORSALGIA, UNSPECIFIED SNOMED Code(s): 528952741 Comment: - MRI lumbar spine with left sided disc protrusion at L4-L5 with a small left sided disc protrusion at L3-L4 and a right sided disc protrusion at L2-L3. - Appreciate neurosurg consultation, no indication for emergent surgery. Recommended to f/u this afternoon at her previously scheduled appointment (2) DVT prophylaxis Comment: - Heparin SQ. (3) Full code status SNOMED Code(s): 251718653 Comment: (4) Hyperlipidemia Comment: - Continue atorvastatin. (5) Hypertension Comment: - Continue lisinopril. Status and Disposition: OBV. DC to home
[2018-06-01 08:01] LABS: EGFR Non-African American 111.4 (>60)
[2018-06-01] MEDS ORDERED: Sertraline* 50 MG TAB PO SCH (09:00)
[2018-06-01] MEDS ORDERED: Lisinopril TAB* 10 MG PO SCH (09:00)
[2018-06-01] MEDS ORDERED: oxyCODONE/Acetamin 5/325 MG* TAB PO PRN (09:35)
[2018-06-01] MEDS ORDERED: Docusate CAP* 100 MG PO PRN (09:36)
[2018-06-01] MEDS ORDERED: Docusate CAP* 100 MG PO ONE (09:36)
--- NOTE | 2018-06-01 12:50 | CONSULT ---
Consult Consult: Neurosurgery Consult Date of Admission: 05/31/18 Date of Consult: 06/01/18 Reason for Consult: Left lumbar radiculopathy Referring Provider: Kortney Morris NP HPI: Patient seen and examined this morning. This is a 52 year old female with past medical history significant for who presented to [facility] ED yesterday with exacerbation of low back and left lower extremity pain. She was recently admitted for a similar issue and has been participating in physical therapy and congregational care pastor as an outpatient. She was scheduled to be seen in office with Dr. Mistry today for follow up. She states that she has traveled a lot in the car recently, down to [facility] and back. She believes this aggravated the back pain. She went to the chiropractor and used the inversion table which was helpful. She has also been applying ice to the low back. She was feeling well until yesterday after physical therapy. She states that she was sore after PT and went home to rest. When she went to get up, she felt very stiff and has numbness /tingling in the upper and lower extremities in addition to low back and LLE pain. She called a friend who came over and then called for an ambulance. She was transported to [facility] ED and was admitted for pain management. She denies RLE numbness, tingling, weakness and pain. The LLE pain is worse with standing and sitting. She is able to lay down without difficulty. Denies weakness of the LLE but does report tingling. Denies bowel and bladder incontinence. Past Medical History: 1. Hypertension 2. Hyperlipidemia 3. Depression Home Medications: 1. Sertraline* [Zoloft*] 50 mg PO DAILY 05/01/18 [History Confirmed 05/31/18] 2. Simvastatin (NF) [Zocor (NF)] 40 mg PO BEDTIME 05/01/18 [History Confirmed ] 3. Lisinopril TAB* [Prinivil TAB 10 MG*] 20 mg PO DAILY 05/31/18 [History Confirmed 05/31/18] 4. Cyclobenzaprine TAB* [Flexeril 10 MG TAB*] 10 mg PO TID PRN 15 Days #15 tab 06/01/18 [Rx] 5. oxyCODONE/Acetamin 5/325 MG* [Percocet 5/325 TAB*] 1 tab PO Q6H PRN #15 tab MDD 4 06/01/18 [Rx] Allergies: 1. Sulfa antibiotics Social History: This patient reports occasional alcohol use and smokes 1/2 ppd. ROS: Full ROS completed. She reports constipation. All other negative or stated in HPI. Physical Exam: Vital Signs: Temp Pulse Resp BP Pulse Ox 98.2 F 66 18 125/77 98 06/01/18 07:27 06/01/18 07:27 06/01/18 10:00 06/01/18 07:27 06/01/18 07:27 General: Alert and NAD. HEENT: Head is normocephalic and atraumatic. PERRL, EOMI. Moist mucus membranes. Gross hearing intact. Neck: Supple and symmetric. No deformity. CV: Radial and pedal pulses 2+ and equal bilaterally. Lungs: Breathing is nonlabored and lungs are clear. Abdomen: The abdomen is mildly rounded, nontender, soft. NABS. Neuro: Speech is clear. CN II-XII intact. Upper extremity strength 5/5 bilaterally throughout. Lower extremity strength 5/5 bilaterally and throughout. Sensation diminished in the LLE, intact in RLE. Patellar and achilles reflexes 2+ bilaterally. SLR right negative, left positive. Imagin. MRI of the lumbar spine on 05/02/18 shows degenerative disc disease, L4-5 left disc displacement, spondylolisthesis L5-S1. Assessment and Plan: This patient presents with persistent lumbar radiculopathy despite conservative therapies including medications, congregational care pastor, PT and ice. Mild sensation deficit in LLE. Treatments were discussed with the patient. She was scheduled for an appointment with Dr. Mistry this afternoon and I recommended that she follow up with him for further discussion of possible surgery. There is no indication for urgent or emergent surgery. She agrees with this plan.
--- NOTE | 2018-06-03 21:46 | DS ---
CONTINUATION ADDENDUM NOW INCLUDED ON THIS REPORT DISCHARGE SUMMERY: DATE OF ADMISSION: 05/31/18 DATE OF DISCHARGE: 06/01/18 PROVIDER: Henry Fraser NP ATTENDING PHYSICIAN: Fina Ferrera DO * (report dictated by Henry Fraser NP). PRIMARY CARE PROVIDER: Macho Fairbanks NP. NEUROSURGEON: Dr. Mistry DISCHARGE DIAGNOSIS: Left lumbar radiculopathy. SECONDARY DIAGNOSES: 1. Hypertension. 2. Hyperlipidemia. 3. Depression. 4. Anxiety. HISTORY OF PRESENT ILLNESS AND HOSPITAL COURSE: Please see history and physical by this author for full admission details, but in summary, this is a 52 -year-old female who, approximately one month ago, was hospitalized for 2 to 3 days and was found to have some lumbar bulging disc in which she was sent home from that hospitalization on a steroid pack, muscle relaxers, and pain medications and has been seeing physical Therapy and a chiropractor as an outpatient. She reports that over the last 4 weeks, her pain actually resolved last week. CONTINUATION ADDENDUM: HISTORY OF PRESENT ILLNESS/HOSPITAL COURSE: The patient was seen by chiropractor and physical therapist and they had a resolution of her pain last week. She then traveled to [facility] and reports that on Wednesday, the day before yesterday, she had a physical therapy appointment in which she had not seen them in approximately a week and a half. On the day of admission, yesterday, she woke up feeling well, but reports as the day went on, she began to have an exacerbation of low back pain and left lower extremity pain reporting she was unable to ambulate. She was seen in the emergency department and underwent an injection by the ER physician, Dr. Mir. She still was not able to ambulate in the emergency department. Therefore, Hospital Medicine admitted her for intractable pain. She has greatly improved overnight. She received one dose of Solu-Medrol 125 mg IV in the emergency department and has not received any steroids since. Today, she is ambulating around her room, moving easily in and out of bed and was able to be discharged home today. She has a followup appointment previously scheduled with Dr. Mistry today at 1 p.m. NANCIE Soto, Neurosurgery, saw the patient this morning and agrees with discharge with followup with Dr. Mistry this afternoon and no recommendation or further orders at this time. DISCHARGE MEDICATIONS: 1. Flexeril 10 mg p.o. t.i.d. p.r.n. 2. Lisinopril 10 mg p.o. daily. 3. Percocet 5/325 mg p.o. q.8 hours p.r.n. DISCHARGE PLAN: 1. Discharged to home. The patient will leave the hospital and go to Dr. Mistry's office for her 1 p.m. appointment. 2. Follow up with primary care provider within 1 week. 3. Continue physical therapy. I did discuss with the patient. She should talk to Dr. Mistry in regards to the chiropractic treatments. This appears to have helped her over the past month. However, I did ask the patient to clear this with the neurosurgeon. TIME SPENT: Approximately 60 minutes were spent on this discharge. HENRY FRASER NP [id number]/CPS #: [id number]/CPS #: [id number] SALIMA
--- NOTE | 2018-06-03 21:54 | DS ---
DISCHARGE SUMMARY: ADDENDUM: HISTORY OF PRESENT ILLNESS/HOSPITAL COURSE: The patient was seen by chiropractor and physical therapist and they had a resolution of her pain last week. She then traveled to [facility] and reports that on Wednesday, the day before yesterday, she had a physical therapy appointment in which she had not seen them in approximately a week and a half. On the day of admission, yesterday, she woke up feeling well, but reports as the day went on, she began to have an exacerbation of low back pain and left lower extremity pain reporting she was unable to ambulate. She was seen in the emergency department and underwent an injection by the ER physician, Dr. Mir. She still was not able to ambulate in the emergency department. Therefore, Hospital Medicine admitted her for intractable pain. She has greatly improved overnight. She received one dose of Solu-Medrol 125 mg IV in the emergency department and has not received any steroids since. Today, she is ambulating around her room, moving easily in and out of bed and was able to be discharged home today. She has a followup appointment previously scheduled with Dr. Mistry today at 1 p.m. NANCIE Soto, Neurosurgery, saw the patient this morning and agrees with discharge with followup with Dr. Mistry this afternoon and no recommendation or further orders at this time. DISCHARGE MEDICATIONS: 1. Flexeril 10 mg p.o. t.i.d. p.r.n. 2. Lisinopril 10 mg p.o. daily. 3. Percocet 5/325 mg p.o. q.8 hours p.r.n. DISCHARGE PLAN: 1. Discharged to home. The patient will leave the hospital and go to Dr. Mistry's office for her 1 p.m. appointment. 2. Follow up with primary care provider within 1 week. 3. Continue physical therapy. I did discuss with the patient. She should talk to Dr. Mistry in regards to the chiropractic treatments. This appears to have helped her over the past month. However, I did ask the patient to clear this with the neurosurgeon. TIME SPENT: Approximately 60 minutes were spent on this discharge. HENRY FRASER, CHRIS [id number]/[facility] #: [id number] SALIMA
== END 2018-06-01 10:30 | disposition home or self-care (01) ==
LOC: ED 15:12 → MED 19:32
PROVIDERS: ADMIT Pediatrics; ATTEND Pediatrics
DX: M54.16 Radiculopathy, lumbar region (principal); M51.36 Other intervertebral disc degeneration, lumbar region; M43.17 Spondylolisthesis, lumbosacral region; M54.5 Low back pain; I10 Essential (primary) hypertension; E78.5 Hyperlipidemia, unspecified; F32.9 Major depressive disorder, single episode, unspecified; Z79.899 Other long term (current) drug therapy; Z88.2 Allergy status to sulfonamides; F17.200 Nicotine dependence, unspecified, uncomplicated; G89.29 Other chronic pain
CPT/HCPCS: 36415; 80048; 80320; 85025; 86140; 96374; 96375; 99282; A9270-GY; G0378; G0480; J1170; J1644; J1885; J2060; J2930

== ENCOUNTER 2019-01-20 15:42 | Emergency (ER) | payer OTHER ==
[2019-01-20] MEDS ORDERED: Acetaminophen TAB* 325 MG PO ONE (16:24)
--- NOTE | 2019-01-20 16:38 | ED ---
Upper Extremity Pain - HPI Summary HPI Summary: Patient is a 53-year-old female presenting to the ED with a left wrist injury. She states she was walking her dog last evening when she tripped and fell onto her wrist. She is unsure if she fell on an outstretched hand. She comes in today with swelling of the wrist and hand as well as ecchymosis to the area. She is able to flex and extend about the wrist, however with pain. She does endorse some intermittent numbness and tingling to the index, middle and ring finger, however at this was present prior to her injury as she has a history of carpal tunnel. She has been taking ibuprofen and using ice with some relief. She denies any other injuries. - History of Current Complaint Chief Complaint: EDExtremityUpper Stated Complaint: LT WRIST INJURY PER PT Time Seen by Provider: 01/20/19 15:54 Hx Obtained From: Patient Mechanism Of Injury: Twisted Onset/Duration: Started Days Ago Timing: Constant Severity Initially: Mild Severity Currently: Mild Pain Location: Wrist Character: Aching Alleviating Factor(s): Rest, Ice Associated Signs & Symptoms: Positive: Swelling, Bruising. Negative: Redness, Diaphoresis Related History: Dominant Hand Right - Risk Factors Non-Orthopedic Risk Factor: Negative DVT Risk Factors: Negative Septic Arthritis Risk Factor: Negative Compartment Syndrome Risk Factors: Pain - Allergies/Home Medications Allergies/Adverse Reactions: Allergies Allergy/AdvReac Type Severity Reaction Status Date / Time Sulfa (Sulfonamide Allergy Rash And Verified 01/20/19 15:48 Antibiotics) Itching PMH/Surg Hx/FS Hx/Imm Hx Previously Healthy: Yes Endocrine/Hematology History: Denies: Hx Anticoagulant Therapy, Hx Diabetes Cardiovascular History: Reports: Hx Hypercholesterolemia, Hx Hypertension Denies: Hx Myocardial Infarction, Hx Pacemaker/ICD Respiratory History: Reports: Other Respiratory Problems/Disorders - Smoker Sensory History: Reports: Hx Contacts or Glasses Denies: Hx Hearing Aid Opthamlomology History: Reports: Hx Contacts or Glasses Psychiatric History: Reports: Hx Depression Denies: Hx Panic Disorder - Surgical History Surgery Procedure, Year, and Place: TONSILS,WISDOM TEETH - Immunization History Hx Pertussis Vaccination: No Immunizations Up to Date: Yes Infectious Disease History: No Infectious Disease History: Denies: Traveled Outside the [place] in Last 30 Days - Family History Known Family History: Positive: Diabetes - Social History Occupation: Employed Full-time Lives: With Family Alcohol Use: Occasionally Hx Substance Use: No Substance Use Type: Reports: None Hx Tobacco Use: Yes Smoking Status (MU): Heavy Every Day Tobacco Smoker Type: Cigarettes Review of Systems Constitutional: Negative Negative: Fever, Chills, Fatigue, Skin Diaphoresis Negative: Palpitations, Chest Pain Negative: Shortness Of Breath, Cough Genitourinary: Negative Positive: no symptoms reported, see HPI Positive: Arthralgia - left wrist. Negative: Myalgia Positive: Bruising, Other - swelling Neurological: Negative All Other Systems Reviewed And Are Negative: Yes Physical Exam Triage Information Reviewed: Yes Vital Signs On Initial Exam: Initial Vitals Temp Pulse Resp BP Pulse Ox 97.0 F 93 16 146/100 99 01/20/19 15:43 01/20/19 15:43 01/20/19 15:43 01/20/19 15:43 01/20/19 15:43 Vital Signs Reviewed: Yes Appearance: Positive: Well-Appearing, Well-Nourished Skin: Positive: Warm, Skin Color Reflects Adequate Perfusion, Other - ecchymosis and swelling of the L wrist is noted Head/Face: Positive: Normal Head/Face Inspection Eyes: Positive: EOMI, Conjunctiva Clear Respiratory/Lung Sounds: Positive: Breath Sounds Present Cardiovascular: Positive: Normal Musculoskeletal: Positive: Pain @ - flexion and extension of the wrist Neurological: Positive: Speech Normal Psychiatric: Positive: Normal, Affect/Mood Appropriate Diagnostics - Vital Signs Vital Signs Temp Pulse Resp BP Pulse Ox 01/20/19 15:43 97.0 F 93 16 146/100 99 - Laboratory Lab Statement: Any lab studies that have been ordered have been reviewed, and results considered in the medical decision making process. Course/Dx - Course Course Of Treatment: During the course of treatment, the patient's evaluated for left wrist injury. There is ecchymosis and swelling noted to the hand and wrist. Patient remains able to flex and extend about the wrist and move all fingers and thumb including opposition. X-ray obtained which is read as negative for any wrist fracture. This was read by radiology. She is given a prescription for tramadol for pain and is encouraged ibuprofen and ice. She states ER he has a brace with her and would not like me to provide her one on this date. She will follow-up with orthopedics for further evaluation of this wrist injury as well as for carpal tunnel syndrome. - Diagnoses Differential Diagnosis/HQI/PQRI: Positive: Fracture (Closed), Strain, Sprain Provider Diagnoses: Left wrist sprain Discharge - Sign-Out/Discharge Documenting (check all that apply): Patient Departure Patient Received Moderate/Deep Sedation with Procedure: No - Discharge Plan Condition: Stable Disposition: HOME Prescriptions: traMADol TAB* [Ultram*] 50 mg PO Q8H PRN #6 tab MDD 3 PRN Reason: Pain Patient Education Materials: Wrist Sprain (ED) Referrals: Mimi Younger MD [Primary Care Provider] - Delfino Castillo MD [Medical Doctor] - Additional Instructions: Take 1 tab up to three times daily as needed for pain Ibuprofen 600mg three times daily on opposite schedule of your tramadol Follow up with Dr. Castillo for further evaluation - Billing Disposition and Condition Condition: STABLE Disposition: Home
[2019-01-20 16:45] VITALS: BP 132/88
== END 2019-01-20 16:44 | disposition home or self-care (01) ==
LOC: ED 15:42
DX: S63.502A Unspecified sprain of left wrist, initial encounter (principal); W01.0XXA Fall on same level from slipping, tripping and stumbling without subsequent striking against object, initial encounter; Y93.K1 Activity, walking an animal; Y92.9 Unspecified place or not applicable; Z88.2 Allergy status to sulfonamides; F17.210 Nicotine dependence, cigarettes, uncomplicated
CPT/HCPCS: 99282; A9270-GY

== ENCOUNTER 2019-05-12 08:15 | Day surgery (SDC) | payer OTHER ==
--- NOTE | 2019-05-01 10:24 | HP ---
PREOPERATIVE HISTORY AND PHYSICAL: DATE OF SURGERY/ADMISSION: 05/12/19 [facility] DATE OF OFFICE VISIT/ENCOUNTER: 04/24/19 ATTENDING SURGEON: Margi Solorzano MD * (DICTATED BY NANCIE OSORIO) PROCEDURE: Right wrist carpal tunnel release. HISTORY OF PRESENT ILLNESS: This is a 53-year-old female who complained of numbness and tingling in her bilateral hands right slightly worse than the left. She had nerve conduction studies that showed bilateral severe carpal tunnel syndrome. She has had increasing trouble over the last few months. 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 There was no specific injury. The symptoms are bothersome enough that she would like proceed with surgical intervention. She has consented to proceed with a right wrist carpal tunnel release. PAST MEDICAL HISTORY: 1. Hypertension. 2. Anxiety/depression. 3. Hypercholesterolemia. PAST SURGICAL HISTORY: 1. Tonsillectomy. 2. [employer] teeth extraction. MEDICATIONS: 1. Cyclobenzaprine HCl 10 mg t.i.d. p.r.n. pain. 2. Lisinopril 20 mg daily. 3. Sertraline HCl 50 mg daily. 4. Simvastatin 40 mg daily. ALLERGIES: SULFA antibiotics, cause hives. FAMILY MEDICAL HISTORY: Bladder cancer and cardiac issues. SOCIAL HISTORY: The patient is employed at [employer] in the [employer] department. She is a current smoker, although she is currently trying to quit. She has smoked for 30 years up to a pack per day. She denies recreational drug use. She drinks alcohol on regular occasion. REVIEW OF SYSTEMS: Negative for general, cephalic, cardiovascular, respiratory , GI, , other musculoskeletal, integumentary, endocrine, neurologic, and hematologic symptoms. Infectious Disease: Negative for MRSA, hepatitis C, HIV. PHYSICAL EXAMINATION GENERAL: Well-developed, well-nourished, 53-year-old female, in no acute distress. VITAL SIGNS: Height 5 feet 4 inches, weight 161 pounds, pulse rate 87, blood pressure 124/74. HEENT: Normocephalic, atraumatic. Pupils are equal, round and reactive to light and accommodation. Extraocular movements are intact. Throat is clear. NECK: Supple. No palpable lymph nodes. PULMONARY: Lungs are clear to auscultation bilaterally. No wheezes, rales or rhonchi. CARDIOVASCULAR: Regular rate and rhythm. S1, S2. No murmurs, rubs or gallops. No edema. ABDOMEN: Positive bowel sounds. Soft and nontender. MUSCULOSKELETAL: On exam of her bilateral upper extremities, she has no visible thenar wasting but she has weakness with thumb abduction. She has a positive Tinel sign at the right wrist, less so at the left wrist. She has positive Phalen's bilaterally. Positive median nerve compression test. She reports sensation to be intact to light touch throughout each hand. Negative Tinel's at the elbow bilaterally. NEUROLOGIC: Alert and oriented x3. Cranial nerves II through XII are intact. DIAGNOSTIC STUDIES/LAB DATA: EMG nerve conduction study showed severe bilateral carpal tunnel syndrome. PLAN: The patient is scheduled to undergo a right wrist carpal tunnel release with Dr. Solorzano on 05/12/19. She will return to the office 10 days postop for followup and suture removal. A prescription for Tylenol No. 3 was e-scribed to the patient's pharmacy for postoperative pain management. NANCIE OSORIO [id number]/[facility] #: [id number] SALIMA
[~2019-05-12 08:15] MED LIST: Buffered Lidocaine 1% SYRIN* 1 ML/SYRINGE INTRADERM ONE; Lactated Ringers 1000 ML Bag* 1,000 ML IV SCH; Lidocaine 1% INJ* 10 MG/ML 30 ML SDV ONE
[2019-05-12] MEDS ORDERED: Midazolam* 1 MG/ML 2 ML VIAL (2 MG) ONE (08:24)
[2019-05-12] MEDS ORDERED: fentaNYL* 50 MCG/ML 2 ML VIAL (100 MCG VIAL) ONE (08:24)
[2019-05-12] MEDS ORDERED: Naloxone* 0.4 MG/ML 1 ML VIAL IV PRN (08:57)
[2019-05-12 09:02] VITALS: BP 108/83
--- NOTE | 2019-05-12 13:30 | OP ---
DATE OF OPERATION: 05/12/19 [facility] DATE OF : 65 SURGEON: Margi Solorzano MD APPEALS BOARD REFEREE: NANCIE Rosado ANESTHESIA: Local MAC. PRE-OP DIAGNOSIS: Right carpal tunnel syndrome. POST-OP DIAGNOSIS: Right carpal tunnel syndrome. OPERATIVE PROCEDURE: Right carpal tunnel release. ESTIMATED BLOOD LOSS: Zero. TOURNIQUET TIME: Approximately 10 minutes. INDICATION FOR PROCEDURE: Hillary is a 53-year-old female who has numbness and tingling in the median nerve distribution of her right hand. She presents for right carpal tunnel release. DESCRIPTION OF PROCEDURE: The patient was brought to the operating room, was given a sedation anesthetic and a local infiltration of 10 cc of 1% plain lidocaine in the palm of her right hand. The skin of her right hand and forearm was prepped and draped in the usual sterile fashion. The hand and forearm were exsanguinated and the tourniquet elevated to 250 mmHg. A longitudinal incision was made in the palm in line with the ring finger. We dissected through the subcutaneous tissue down to the transverse carpal ligament. The ligament was divided sharply with a knife and then more proximally with the scissors. The nerve was dissected free from surrounding tissue and there was an area of moderate compression at the mid portion of the ligament. The wound was irrigated and the skin edges were reapproximated with 4 -0 nylon suture. The wound was dressed with Xeroform, 4x4s, Webril, and an Alan wrap. The patient tolerated the procedure well and was brought to the recovery room in good condition. [id number]/[facility] #: [id number] [facility]ENTER[facility]oon
== END 2019-05-12 09:23 | disposition home or self-care (01) ==
LOC: OREAST 08:15
PROVIDERS: ATTEND Orthopaedic Surgery
DX: G56.01 Carpal tunnel syndrome, right upper limb (principal); I10 Essential (primary) hypertension; Z72.0 Tobacco use; E78.00 Pure hypercholesterolemia, unspecified; F41.8 Other specified anxiety disorders
CPT/HCPCS: J2250; J3010

== ENCOUNTER 2021-10-02 13:13 | Inpatient (IN) ==
[2021-10-02 14:14] LABS: ABS Basophils 0.1 10^3/ul (0-0.2); ABS Eosinophils 0.1 10^3/ul (0-0.6); ABS Lymphocytes 0.9 10^3/ul (1.0-4.8); ABS Monocytes 0.5 10^3/ul (0-0.8); ABS Neutrophils 7.3 10^3/ul (1.5-7.7); Eosinophil % 1.4 %; Hematocrit 37 % (35-47); Hemoglobin 12.6 g/dL (12.0-16.0); Lymphocyte % 10.2 %; Mean Corpuscular HGB Conc 34 g/dL (31-36); Mean Corpuscular Hemoglobin 31 pg (27-31); Mean Corpuscular Volume 90 fL (80-97); Mean Platelet Volume 8.2 fL (7.4-10.4); Nucleated Red Blood Cells % 0.1; Platelet Count 420 10^3/uL (150-450); Red Blood Count 4.12 10^6 /uL (3.70-4.87); Red Cell Distribution Width 13 % (10-15); White Blood Count 8.9 10^3/uL (3.5-10.8)
[2021-10-02 14:29] LABS: Albumin 4.1 g/dL (3.2-5.2); Calcium 9.4 mg/dL (8.6-10.3); Potassium 4.1 mmol/L (3.5-5.0); Total Bilirubin 0.7 mg/dL (0.2-1.0)
[2021-10-02 14:30] LABS: Troponin I 0.02 ng/mL (<0.03)
[2021-10-02 14:35] LABS: Albumin/Globulin Ratio 1.1 (1-3); Globulin 3.7 g/dL (2-4); Total Protein 7.8 g/dL (6.4-8.9); eGFR CKD-EPI 94.9 (>60)
[2021-10-02 15:28] LABS: Rapid COVID-19 Molecular Undetected (Undetected)
[2021-10-02 15:49] LABS: Magnesium 1.8 mg/dL (1.9-2.7)
[2021-10-02 15:55] LABS: C Reactive Protein 59.61 mg/L (<8.01)
[2021-10-02] MEDS ORDERED: NS 0.9% 1000 ml BAG 1,000 ML IV ONE (16:03)
[2021-10-02] MEDS ORDERED: Ondansetron 4 mg VIAL 2 MG/ML 2 ml VIAL IV PRN (16:06)
[2021-10-02 17:03] LABS: TSH Ultra Thyroid Stim Horm 2.27 mcIU/mL (0.34-5.60)
[2021-10-02] MEDS ORDERED: Nicotine Lozenge mini 2 MG LOZNG.MINI MT PRN (17:43)
[2021-10-02] MEDS ORDERED: cefTRIAXone 2 GM ADDV.VIAL ONE (17:47)
[2021-10-02] MEDS ORDERED: Metoclopramide 5 MG/ML VIAL (10 mg) IV PRN (18:06)
[2021-10-02 20:57] LABS: Hepatitis B Surface Antigen Nonreactive (Nonreactive)
[2021-10-02 21:02] LABS: Hepatitis A Ab IgM Negative (Negative)
[2021-10-02 21:03] LABS: Hepatitis B Core IgM Nonreactive (Nonreactive)
[2021-10-02] MEDS: Heparin 5000 UNITS/ML 1 mL VIAL SUBCUT SCH (22:16)
[2021-10-03] MEDS: Heparin 5000 UNITS/ML 1 mL VIAL SUBCUT SCH ×3 (06:25→20:42)
[2021-10-03 06:53] LABS: Albumin 3.5 g/dL (3.2-5.2); Albumin/Globulin Ratio 1.1 (1-3); Calcium 9.1 mg/dL (8.6-10.3); Globulin 3.3 g/dL (2-4); Magnesium 2.2 mg/dL (1.9-2.7); Potassium 4.2 mmol/L (3.5-5.0); Total Bilirubin 0.4 mg/dL (0.2-1.0); Total Protein 6.8 g/dL (6.4-8.9)
[2021-10-03 07:06] LABS: ABS Basophils 0.1 10^3/ul (0-0.2); ABS Eosinophils 0.2 10^3/ul (0-0.6); ABS Lymphocytes 1.6 10^3/ul (1.0-4.8); ABS Monocytes 0.4 10^3/ul (0-0.8); ABS Neutrophils 2.7 10^3/ul (1.5-7.7); Hematocrit 34 % (35-47); Hemoglobin 11.4 g/dL (12.0-16.0); Lymphocyte % 31.5 %; Mean Corpuscular HGB Conc 34 g/dL (31-36); Mean Corpuscular Hemoglobin 31 pg (27-31); Mean Corpuscular Volume 91 fL (80-97); Mean Platelet Volume 8.4 fL (7.4-10.4); Platelet Count 309 10^3/uL (150-450); Red Blood Count 3.72 10^6 /uL (3.70-4.87); Red Cell Distribution Width 13 % (10-15)
[2021-10-03 07:55] LABS: Phosphorus 4.1 mg/dL (2.5-5.0)
[2021-10-03 09:45] LABS: Hepatitis C Antibody QNS (Negative)
[2021-10-03 10:08] LABS: C Reactive Protein 87.37 mg/L (<8.01)
[2021-10-03 17:16] LABS: Hepatitis C Antibody Negative (Negative)
[2021-10-03] MEDS: cefTRIAXone 2 GM ADDV.VIAL 2 GM in NS 0.9% 100 ml BAG 100 ML IV SCH (17:20)
[2021-10-04 04:46] LABS: Hematocrit 35 % (35-47); Hemoglobin 11.9 g/dL (12.0-16.0); Mean Corpuscular HGB Conc 34 g/dL (31-36); Mean Corpuscular Hemoglobin 31 pg (27-31); Mean Corpuscular Volume 90 fL (80-97); Mean Platelet Volume 7.9 fL (7.4-10.4); Platelet Count 338 10^3/uL (150-450); Red Blood Count 3.88 10^6 /uL (3.70-4.87); Red Cell Distribution Width 13 % (10-15); White Blood Count 5.7 10^3/uL (3.5-10.8)
[2021-10-04 05:07] LABS: ALT 69 U/L (7-52); AST 34 U/L (13-39); Albumin 3.6 g/dL (3.2-5.2); Albumin/Globulin Ratio 1.1 (1-3); Alkaline Phosphatase 99 U/L (35-149); Anion Gap 7 mmol/L (2-11); Blood Urea Nitrogen 9 mg/dL (6-24); CO2 Carbon Dioxide 24 mmol/L (22-32); Calcium 9.1 mg/dL (8.6-10.3); Chloride 106 mmol/L (101-111); Globulin 3.4 g/dL (2-4); Glucose 101 mg/dL (70-100); Magnesium 2.2 mg/dL (1.9-2.7); Potassium 4.1 mmol/L (3.5-5.0); Sodium 137 mmol/L (135-145); eGFR CKD-EPI 106.6 (>60)
[2021-10-04] MEDS: Heparin 5000 UNITS/ML 1 mL VIAL SUBCUT SCH ×3 (05:55→20:23)
[2021-10-04] MEDS: cefTRIAXone 2 GM ADDV.VIAL 2 GM in NS 0.9% 100 ml BAG 100 ML IV SCH (17:00)
[2021-10-05 04:54] LABS: Magnesium 2.2 mg/dL (1.9-2.7); Potassium 3.8 mmol/L (3.5-5.0)
[2021-10-05] MEDS: Heparin 5000 UNITS/ML 1 mL VIAL SUBCUT SCH ×3 (08:00→21:27)
[2021-10-05 16:11] LABS: C Reactive Protein 27.82 mg/L (<8.01)
[2021-10-05] MEDS: cefTRIAXone 2 GM ADDV.VIAL 2 GM in NS 0.9% 100 ml BAG 100 ML IV SCH (17:31)
[2021-10-06] MEDS: Heparin 5000 UNITS/ML 1 mL VIAL SUBCUT SCH ×3 (05:42→21:01)
[2021-10-06] MEDS: cefTRIAXone 2 GM ADDV.VIAL 2 GM in NS 0.9% 100 ml BAG 100 ML IV SCH (16:47)
[2021-10-07 05:21] LABS: ABS Eosinophils 0.2 10^3/ul (0-0.6); ABS Monocytes 0.5 10^3/ul (0-0.8); ABS Neutrophils 2.9 10^3/ul (1.5-7.7); Eosinophil % 3.9 %; Hematocrit 38 % (35-47); Hemoglobin 12.7 g/dL (12.0-16.0); Lymphocyte % 34.9 %; Mean Corpuscular HGB Conc 34 g/dL (31-36); Mean Corpuscular Hemoglobin 30 pg (27-31); Mean Corpuscular Volume 90 fL (80-97); Mean Platelet Volume 8.2 fL (7.4-10.4); Platelet Count 365 10^3/uL (150-450); Red Blood Count 4.19 10^6 /uL (3.70-4.87); Red Cell Distribution Width 13 % (10-15); White Blood Count 5.6 10^3/uL (3.5-10.8)
[2021-10-07 05:43] LABS: Albumin 3.8 g/dL (3.2-5.2); Albumin/Globulin Ratio 1.1 (1-3); Calcium 9.6 mg/dL (8.6-10.3); Globulin 3.4 g/dL (2-4); Total Bilirubin 0.2 mg/dL (0.2-1.0); Total Protein 7.2 g/dL (6.4-8.9); eGFR CKD-EPI 107.5 (>60)
[2021-10-07] MEDS: Heparin 5000 UNITS/ML 1 mL VIAL SUBCUT SCH ×2 (06:00→16:17)
[2021-10-07 08:02] VITALS: BP 110/70
[2021-10-07 13:57] LABS: Anaplasma phagocytophilum Negative (Negative); B. miyamotoi PCR, B Negative (Negative); Babesia divergens/MO-1 Negative (Negative); Babesia ducani Negative (Negative); Ehrlichia chaffeensis Negative (Negative); Ehrlichia ewingii/canis Negative (Negative); Ehrlichia muris eauclairensis Negative (Negative)
[2021-10-09 00:01] LABS: IgG Immunoblot Positive (Negative); IgM Immunoblot Positive (Negative)
== END 2021-10-07 16:15 | disposition home or self-care (01) | DRG 724 ==
LOC: ED 13:13 → SUATTDRO 16:28 → EDHOLD 16:28 → ICU 17:33 → MEDTELE 10-05 15:40
PROVIDERS: ADMIT Internal Medicine; ATTEND Internal Medicine

== ENCOUNTER 2023-12-09 08:19 | Inpatient (IN) ==
[~2023-12-09 08:19] MED LIST changes: -Buffered Lidocaine 1% SYRIN* 1 ML/SYRINGE INTRADERM ONE; +HYDROmorphone 1 MG/1 ML SYRINGE IV PRN; -Lactated Ringers 1000 ML Bag* 1,000 ML IV SCH; -Lidocaine 1% INJ* 10 MG/ML 30 ML SDV ONE; +Naloxone 0.4 mg VIAL 0.4 mg/ml 1 ml VIAL IV PRN; +Ondansetron 4 mg VIAL 2 MG/ML 2 ml VIAL IV PRN; +fentaNYL 100 mcg/2 ml 50 MCG/ML VIAL IV PRN
[2023-12-09] MEDS ORDERED: ceFAZolin 2 GM PREMIX 2 GM/50 ML BAG ONE (09:31)
[2023-12-09] MEDS ORDERED: Tranexamic Acid 1 GM/100ML BAG 2,000 MG/200 ML BAG IV ONE (09:31)
[2023-12-09 09:36] LABS: Rapid COVID-19 Molecular Undetected (Undetected)
[2023-12-09] MEDS: Buffered Lidocaine 1% SYRIN 1 ml INTRADERM ONE (09:54)
[2023-12-09] MEDS: Lactated Ringers 1000 ml BAG 1,000 ML IV SCH ×2 (09:54→17:44)
[2023-12-09] MEDS ORDERED: Midazolam 2 mg/2 ml VIAL 1 mg/ml 2 ml VIAL (2 mg) ONE ×2 (10:18→11:01)
[2023-12-09] MEDS ORDERED: ROPIVACAINE 5 MG/ML 30 ML BTL (0.5%) ONE ×2 (10:18→10:50)
[2023-12-09] MEDS ORDERED: Dexamethasone IV 4 MG/ML VIAL 1 ml VIAL ONE ×2 (10:18→11:40)
[2023-12-09] MEDS ORDERED: Propofol 10 MG/ML 20 ML BTL ONE ×3 (11:13→12:25)
[2023-12-09] MEDS ORDERED: Lidocaine 2% PF 5 ML VIAL ONE (11:39)
[2023-12-09] MEDS ORDERED: Ondansetron 4 mg VIAL 2 MG/ML 2 ml VIAL ONE (11:40)
[2023-12-09] MEDS ORDERED: Ondansetron ODT 4 mg TAB 4 MG TAB PO PRN (13:49)
[2023-12-09] MEDS ORDERED: Lactulose 30 ml UDC PO PRN (13:49)
[2023-12-09] MEDS ORDERED: Ondansetron 4 mg VIAL 2 MG/ML 2 ml VIAL IV PRN (13:49)
[2023-12-09] MEDS ORDERED: Magnesium Hydroxide LIQ 30 ML UDC PO PRN (13:49)
[2023-12-09] MEDS: ceFAZolin 1 GM ADVAN 1 GM in NS 0.9% 50 ML 50 ML IVPB SCH (20:50)
[2023-12-09] MEDS: Magnesium Hydroxide LIQ 30 ML UDC PO SCH (20:50)
[2023-12-09] MEDS: Morphine 2 MG/ML SYRINGE IV PRN (20:51)
[2023-12-10 06:03] LABS: Hematocrit 36.8 % (35-45); Hemoglobin 12.3 g/dL (11.5-14.3); Mean Platelet Volume 8.2 fL (7.5-11.2); Platelet Count 265 10^3/uL (150-450)
[2023-12-10 06:22] LABS: Calcium 9.5 mg/dL (8.6-10.3); Creatinine, Serum 0.64 mg/dL (0.51-0.95); Potassium 4.5 mmol/L (3.5-5.0); eGFR CKD-EPI 102.4 (>60)
[2023-12-10] MEDS: Vitamin THERAPEUTIC TAB PO SCH (08:21)
[2023-12-10 10:06] VITALS: BP 122/84
== END 2023-12-10 13:00 | disposition home or self-care (01) | DRG 302 ==
LOC: INTOOBSV 08:19 → AA 08:19 → SSU 13:53
PROVIDERS: ADMIT Orthopaedic Surgery Adult Reconstructive Orthopaedic Surgery; ATTEND Orthopaedic Surgery Adult Reconstructive Orthopaedic Surgery